=== PATIENT | male | born 1960 | race Caucasian/White ===

== ENCOUNTER 2021-03-14 18:56 | Emergency (ER) | payer SELFPAY ==
[2021-03-14 19:07] VITALS: BP 112/69; PULSE 66; RESP 18; TEMP 37.2; O2SAT 95
--- NOTE | 2021-03-14 19:29 | DI.RAD_ITS ---
Exam(s) XR CHEST 1V IN DI DEPT EXAM: XR CHEST 1V IN DI DEPT CLINICAL HISTORY: fever, back pain. TECHNIQUE: 2D digital imaging was performed. COMPARISON: CT CT ABDOMEN PELVIS W from 03/14/[address] ABDOMEN PELVIS W from 03/14/2021 FINDINGS: Heart size is upper normal. The mediastinum is not widened. Lungs are clear. No infiltrates nor obvious pleural effusions. IMPRESSION: No acute pulmonary findings on this single AP portable view of the chest. DATA REPOSITORY: RADIATION DOSE DELIVERED: All CT scans at this facility use at least one of these dose optimization techniques: automated exposure control; mA and/or kV adjustment per patient size (includes targeted e xams where dose is matched to clinical indication); or iterative reconstruction.
--- NOTE | 2021-03-14 19:30 | DI.CT_ITS ---
Exam(s) CT ABDOMEN PELVIS W EXAM: CT ABDOMEN PELVIS W CLINICAL HISTORY: pain left flank/SI region. TECHNIQUE: Imaging Protocol: Axial computed tomography images with coronal and sagittal reformatted images were created and reviewed CONTRAST MATERIAL: Intravenous: Omnipaque 100cc Oral: None COMPARISON: No exams were available for comparison FINDINGS: VISUALIZED LUNG BASES: No nodules nor pleural effusions evident. ABDOMEN: LIVER: There are no focal hepatic lesions evident . GALLBLADDER/BILIARY: No obvious gallbladder pathology. CBD is not dilated. PANCREAS: No evidence of pancreatic mass nor dilatation of the pancreatic duct. SPLEEN: Spleen size is upper normal. Splenic and portal veins are patent. ADRENALS: There are no significant adrenal masses. KIDNEYS:There is a benign 2 x 1.3 cm cyst in the posterior cortex of the left kidney. No solid renal masses. No calculi nor hydronephrosis.. ABDOMINAL AORTA: Abdominal aorta is not enlarged. LYMPH NODES:There is no retroperitineal nor paraaortic adenopathy. ABDOMINAL WALL: There is a fat containing anterior abdominal wall umbilical hernia. This does not co ntain bowel loops. GI: There is no evidence of bowel obstruction, free air, nor abscess. However, there is a lindo colitis pattern evident. There is a tiny amount of free fluid in the depende nt aspect of the pelvis. PELVIS: GI: No evidence of appendicitis.No evidence of sigmoid diverticulitis.There is a hyperdense diverticu lum off the lateral wall of the left colon which measures 7 x 8 millimeters. LYMPH NODES: There is no intrapelvic nor inguinal adenopathy. REPRODUCTIVE: Prostate size upper normal. URINARY BLADDER: No calculi nor obvious masses evident OSSEOUS: There is a healed fracture of the posterior aspect of the left 11th rib. No acute fractures evident. Sacroiliac joints appear unremarkable. There are bilateral pars interarticularis defects at L5 level with 5 millimeters anterolisthesis L5 u jarek S1. Mild disc space narrowing evident at this level. IMPRESSION: 1. Main finding here is a lindo colitis pattern. There is also a tiny amount of ascites-free fluid in the dependent aspect of the pelvis which is most probably related to this finding. 2. No evidence of bowel obstruction, free air, nor abscess. 3. There is a fat containing anterior abdominal wall umbilical hernia. No bowel loops seen within th e hernia. 4. Solitary 8 millimeter diverticulum noted off the lateral wall of the descending left colon. No ev idence of obvious acute diverticulitis at this level. Incidental osseous findings as above. However, there are no significant osseous lesions RADIATION DOSE DELIVERED: Total DLP DATA REPOSITORY: All CT scans at this facility are submitted to the National Radiology Data Registry (NRDR) Dose Index Registry (DIR) with the [employer] (A[employer]). RADIATION OPTIMIZATION: All CT scans at this facility use at least one of these dose optimization te chniques: automated exposure control; mA and/or kV adjustment per patient size (includes targeted exa ms where dose is matched to clinical indication); or iterative reconstruction.
--- NOTE | 2021-03-14 19:31 | DI.CT_ITS ---
Exam(s) CT LUMBAR SPINE RECONS EXAM: CT LUMBAR SPINE RECONS CLINICAL HISTORY: pain 5-s1. TECHNIQUE: Imaging Protocol: Axial computed tomography images with coronal and sagittal reformatted images were created and reviewed COMPARISON: No exams were available for comparison FINDINGS: Bones: There are no fractures nor lytic osseous lesions identified. INDIVIDUAL LEVELS: T12-L1:No disc herniation nor canal stenosis. Facet joints unremarkable. No foraminal stenosis. L1-2: No disc herniation nor canal stenosis. Facet joints unremarkable. No foraminal stenosis. L2-3: No disc herniation nor canal stenosis. Facet joints unremarkable. No Foraminal stenosis L3-4: Broad symmetrical annular bulging. Mild spinal canal stenosis . mild facet arthropathy. L4-5: No disc herniation nor canal stenosis. L5-S1: Bilateral pars defects with 5 millimeters anterolisthesis L5 upon S1. Also disc space narrow ing. Bilateral foraminal stenosis. Central canal dimensions within normal limits. The visualized sacroiliac joints and sacrum appear unremarkable. PARASPINAL SOFT TISSUES: Visualized paraspinal tissues appear unremarkable. IMPRESSION: 1. There are bilateral pars defects at L5 with anterolisthesis L5 upon S1 and some disc space narrowi ng. There is significant narrowing of both exiting neural foramen at this level with impingement upo n the exiting nerve roots bilaterally at this level 2. Other findings as above. Clinically indicated follow-up MRI can be performed RADIATION DOSE DELIVERED: Total DLP DATA REPOSITORY: All CT scans at this facility are submitted to the National Radiology Data Registry (NRDR) Dose Index Registry (DIR) with the [employer] (ACR). RADIATION OPTIMIZATION: All CT scans at this facility use at least one of these dose optimization te chniques: automated exposure control; mA and/or kV adjustment per patient size (includes targeted exa ms where dose is matched to clinical indication); or iterative reconstruction.
[2021-03-14] MEDS: Normal Saline 1,000 ML 1000 ML IV (19:42)
[2021-03-14 19:45] LABS: Lactate 0.8 mmol/L (0.6-1.4)
[2021-03-14 19:50] LABS: Abs Immature Grans 0.01 10^3/uL (0.0-0.06); Absolute Basophil Count 0.02 10^3/uL (0.0-0.2); Absolute Eosinophil Count 0.02 10^3/uL (0.0-0.7); Absolute Lymphocyte Count 0.42 10^3/uL (1.2-3.4); Absolute Monocyte Count 0.22 10^3/uL (0.1-0.8); Basophils % 0.6; Eosinophils % 0.6; HCT 41.7 % (40.0-50.0); HGB 14.6 g/dL (13.5-17.5); Immature Grans % 0.3; Lymphocytes % 11.6; MCH 33.6 pg (27.0-33.0); MCV 96.1 fL (80-95); MPV 11.3 fL (8.0-11.0); Monocytes % 6.1; Neutrophils % 80.8; Nucleated RBC 0 %; Platelet Count 121 10^3/uL (130-400); RBC 4.34 10^6/uL (4.36-5.78); RDW 11.8 % (11.8-14.1); RDW-SD 41.5 fL; WBC 3.62 10^3/uL (4.4-10.8)
[2021-03-14 19:51] LABS: Absolute Neutrophil Count 2.92 10^3/uL (1.2-6.7)
[2021-03-14 19:53] LABS: ESR 8 mm/hr (0-20)
[2021-03-14 20:00] LABS: ALT 29 U/L (16-63); AST 13 U/L (15-37); Albumin 3.5 g/dL (3.4-5.0); Alkaline Phosphatase 55 U/L (46-116); BUN 16 mg/dL (7-18); Bilirubin, Total 0.5 mg/dL (0.2-1.0); C-Reactive Protein 11.77 mg/dL (0.0-0.3); CREATININE 1.1 mg/dL (0.70-1.30); Calcium 8.5 mg/dL (8.5-10.1); Chloride 106 mmol/L (98-107); Glucose 100 mg/dL (74-106); Magnesium 2.2 mg/dL (1.8-2.4); Potassium 3.3 mmol/L (3.5-5.1); Sodium 142 mmol/L (136-145); Total Protein 6.8 g/dL (6.4-8.2)
[2021-03-14] MEDS: Omnipaque 350 MG/ML 100 ML BTL IJ (20:11)
[2021-03-14] MEDS: Normal Saline Flush 10 ML SYR IVP (20:12)
[2021-03-14] MEDS: Normal Saline - Diluent 50 ML VIAL IV (20:12)
--- NOTE | 2021-03-14 20:34 | DI.VRAD_ITS ---
PROCEDURE INFORMATION: Exam: CT Lumbar Spine Without Contrast Exam date and time: 03/14/2021 7:43 PM Age: 60 years old Clinical indication: Other: Pain l5 s1 TECHNIQUE: Imaging protocol: Computed tomography images of the lumbar spine without contrast. Radiation optimization: All CT scans at this facility use at least one of these dose optimization techniques: automated exposure control; mA and/or kV adjustment per patient size (includes targeted exams where dose is matched to clinical indication); or iterative reconstruction. COMPARISON: No relevant prior studies available. 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 There is bilateral spondylolysis at L5-S1 with 1-2 mm of spondylolisthesis. There is mild broad-based disc bulge with bilateral foraminal narrowing. Discs/Spinal canal/Neural foramina: At L4-L5 there is mild broad-based disc bulge with bilateral foraminal narrowing. No central stenosis. Similar changes seen at L3-L4 without central stenosis. There is minimal hypertrophic spurring with broad-based disc bulge L2-L3. There is mild effacement of the ventral aspect of the thecal sac. Kidneys and ureters: Left renal cyst. Soft tissues: Unremarkable. IMPRESSION: Lower lumbar spondylosis with foraminal compromise most severe with associated spondylolysis L5-S1. Dictated and Authenticated by: Sherie Mccall MD. Ordering:MALINA Castelan MD
--- NOTE | 2021-03-14 20:38 | DI.VRAD_ITS ---
PROCEDURE INFORMATION: Exam: CT Abdomen And Pelvis With Contrast Exam date and time: 03/14/2021 7:32 PM Age: 60 years old Clinical indication: Other: L flank, si region; Patient HX: Pain L flank TECHNIQUE: Imaging protocol: Computed tomography of the abdomen and pelvis with contrast. Radiation optimization: All CT scans at this facility use at least one of these dose optimization techniques: automated exposure control; mA and/or kV adjustment per patient size (includes targeted exams where dose is matched to clinical indication); or iterative reconstruction. Contrast material: OMNIPAQUE 350; Contrast volume: 100 ml; Contrast route: INTRAVENOUS (IV); COMPARISON: No relevant prior studies available. FINDINGS: Liver: Normal. No mass. Gallbladder and bile ducts: Normal. No calcified stones. No ductal dilation. Pancreas: Normal. No ductal dilation. Spleen: Normal. No splenomegaly. Adrenal glands: Normal. No mass. Kidneys and ureters: Left renal cyst. No hydronephrosis. Stomach and bowel: There is wall edema involving the right colon extending to the splenic flexure and to a lesser extent involving the descending colon, sigmoid and rectum. The degree of involvement is somewhat heterogeneous. Appendix: No evidence of appendicitis. Intraperitoneal space: There is a small amount of free fluid in the deep pelvis. Vasculature: Mild atherosclerotic change seen in the vasculature. Lymph nodes: Unremarkable. No enlarged lymph nodes. Urinary bladder: Unremarkable as visualized. Reproductive: Unremarkable as visualized. Bones/joints: There is bilateral spondylolysis with very minimal spondylolisthesis at L5-S1. Soft tissues: Unremarkable. IMPRESSION: Pancolitis with patchy distribution noted. Dictated and Authenticated by: Sherie Mccall MD. Ordering:MALINA Castelan MD
[2021-03-14 20:49] LABS: Bilirubin Small (Negative); Blood Negative (Negative); Clarity Clear (Clear); Glucose Negative (Negative); Ketones Negative (Negative); Leukocyte Esterase Negative (Negative); Nitrite Negative (Negative); Urobilinogen 0.2 EU/dL (Up TO 0.2)
--- NOTE | 2021-03-14 20:49 | DI.VRAD_ITS ---
PROCEDURE INFORMATION: Exam: XR Chest Exam date and time: 03/14/2021 7:44 PM Age: 60 years old Clinical indication: Patient HX: Fever and back pain TECHNIQUE: Imaging protocol: XR of the chest. Views: 1 view. COMPARISON: CT ABDOMEN PELVIS W 03/14/2021 8:08 PM FINDINGS: Lungs: Unremarkable. No consolidation. Pleural spaces: Unremarkable. No pleural effusion. No pneumothorax. Heart/Mediastinum: Unremarkable. No cardiomegaly. Bones/joints: Unremarkable. Other findings: The patient is lordotically positioned. IMPRESSION: No evidence for acute abnormality in the chest. Dictated and Authenticated by: Sherie Mccall MD. Ordering:MALINA Castelan MD
[2021-03-14 21:00] LABS: Bacteria Negative HPF (Negative); Epithelial Cells Negative HPF (Negative); RBC 0-2 HPF (0-2); WBC Negative HPF (0-5)
[2021-03-14 21:01] LABS: C & S Indicated? No; Casts 0-2 Hyaline LPF (Negative); Crystals Negative HPF (Negative); Mucus Heavy (Negative)
--- NOTE | 2021-03-14 21:02 | ED.GENADUL_ITS ---
Discharge Plan Disposition Patient Disposition: HOME Condition: Stable Discharge Details Clinical Impression: Colitis Primary Care Provider: Unknown,Unknown ED Provider: Annelise Torres Home Meds and New Rx's Prescriptions: New ciprofloxacin HCl 500 mg tablet 500 mg PO BID Qty: 20 RF: 0 metronidazole [Flagyl] 500 mg tablet 500 mg PO BID Qty: 20 RF: 0 Saccharomyces boulardii [Florastor] 250 mg capsule 250 mg PO BID Qty: 14 RF: 0 potassium chloride 20 mEq tablet extended release 20 meq PO DAILY Qty: 7 RF: 0 Discharge Instructions Additional Instructions: Take Tylenol and ibuprofen as needed for fever control Care management will call you regarding setting up primary care follow-up Should you have fever lasting longer than 5 days he should be reevaluated again Take antibiotic as prescribed Stay hydrated Recommend clear liquid diet for the next several days I have listed a surgeon for you to follow-up for colonoscopy Your Covid swab will likely be back in approximately an hour, and I will notify you if the result is positive Your stool culture is pending, you will be notified with positive results You will take antibiotics in the interim If the Florastor is an expensive medication, my recommendation would be to take acidophilus pills in place Discharge Data Discharge Date/Time-TO BE ENTERED AT DEPARTURE: 03/14/21 22:20 Medical Decision Making Patient appears well, his fever history certainly is concerning, he does have mild leukopenia, and an elevated CRP We talked about admission versus discharge home with patient for discharge home, stool cultures pending source Will initiate antibiotic given fever history and persistent diarrhea, pending stool culture at this time Covid negative Patient does not have outpatient follow-up with primary care physician, I did recommend care management follow-up and he was placed on list for acquisition of AP Symptoms are stable on reevaluation he has not been febrile throughout encounter, he is not tachycardic, he is not hypoxic, chest x-ray is within normal limits, his potassium is supplemented at home Potassium was 3.3 CT abdomen and pelvis findings reviewed as interpreted below:. Main finding here is a lindo colitis pattern. There is also a tiny amount of ascites-free fluid in the dependent aspect of the pelvis which is most probably related to this finding. 2. No evidence of bowel obstruction, free air, nor abscess. 3. There is a fat containing anterior abdominal wall umbilical hernia. No bowel loops seen within the hernia. 4. Solitary 8 millimeter diverticulum noted off the lateral wall of the descending left colon. No evidence of obvious acute diverticulitis at this level. Incidental osseous findings as above. However, there are no significant osseous lesions Did consider urinary tract infection, urinalysis within normal limits, chest x- ray does not show evidence of pneumonia radiology interpretation my review Patient appears well, he is alert, oriented, of decisional capacity and discharged home in care of , both and patient felt comfortable discharge home with tramadol given very low threshold to return for new or worsening complaints 24-48 hour reevaluation Medical Records Medical records reviewed: Yes I reviewed the patient's medical records. Lab Data Lab results reviewed: Yes I reviewed the patient's lab results. HPI General Mode of arrival: ambulatory . Date/Time Provider Initiated Documentation: 03/14/21 19:14 . Limitations to Documentation: no limitations . Information obtained by: patient . HPI Narrative: This 60-year-old gentleman who is otherwise healthy presents with fever that started on Monday. T-max reportedly 106 at this time. He has had temp of 102 since that time. Been taking Tylenol with good relief in symptoms. Denies any chest pain or shortness of breath. His only complaint is some pain to his left low back region. He denies any nausea or vomiting. He denies history of similar symptoms in the past. He denies known sick contacts or tick bite. He denies any urinary complaints. Denies history of IV drug abuse. Denies history of epidural abscess or discitis. Denies any stiff neck or current headache. Has had intermittent headaches, largely associated with fever for patient. Denies any strength or sensation changes or changes in bowel or bladder. States is not having diarrhea. He denies recent antibiotic use. Not have been vaccinated. D enies any sick contacts. Denies any abdominal pain. Related Data Home Medications Medication Instructions Recorded Confirmed Saccharomyces boulardii [Florastor] 250 mg PO BID #14 cap 03/14/21 ciprofloxacin HCl 500 mg PO BID #20 tab 03/14/21 metronidazole [Flagyl] 500 mg PO BID #20 tab 03/14/21 potassium chloride 20 meq PO DAILY #7 tab 03/14/21 Previous Rx's Medication Instructions Recorded Saccharomyces boulardii [Florastor] 250 mg PO BID #14 cap 03/14/21 ciprofloxacin HCl 500 mg PO BID #20 tab 03/14/21 metronidazole [Flagyl] 500 mg PO BID #20 tab 03/14/21 potassium chloride 20 meq PO DAILY #7 tab 03/14/21 Allergies Allergy/AdvReac Type Severity Reaction Status Date / Time No Known Allergies Allergy Unverified 03/14/21 19:11 General Stated Complaint: Fever GIOVANNA: 3 Review of Systems All systems reviewed & are unremarkable except as noted in HPI and below PFSH Social History Smoking/Tobacco Use Status: Current every day Tobacco Type: smokeless tobacco Smoking risk assessment performed?: Yes Alcohol Intake: current Alcohol Intake frequency: a few times a week Alcohol type: beer and hard liquor Drug use: Rarely Substance use type: does not use Do you feel safe at home: Yes Do you feel safe in your relationship?: Yes Exam Const General: cooperative, comfortable and no acute distress HENMT Other: Moist membranes Eyes Pupils: PERRL Neck Other: No meningismus Resp Effort & Inspection: normal respiratory effort Auscultation: clear to auscultation bilaterally Cardio Rate: regular rate Rhythm: regular rhythm GI Other: No abdominal tenderness, left CVA tenderness, no rebound or guarding, no ecchymosis, no rashes Skin General skin exam: no rashes or lesions noted Neuro General: patient alert and patient oriented x3 Extrem Other: No swelling or tenderness Psych Appearance: well kempt Course Vital Signs Vital signs: Vital Signs Temperature 37.2 C 03/14/21 19:07 Pulse 66 03/14/21 19:07 Respiratory Rate 18 03/14/21 19:07 Blood Pressure 112/69 03/14/21 19:07 Pulse Oximetry 95 03/14/21 19:07 Temperature 37.2 C 03/14/21 19:07 Temperature Source Oral 03/14/21 19:07 Pulse 66 03/14/21 19:07 Respiratory Rate 18 03/14/21 19:07 Respiratory Effort Non-Labored 03/14/21 19:11 Blood Pressure 112/69 03/14/21 19:07 Pulse Oximetry 95 03/14/21 19:07 Pain Level 5 03/14/21 19:07 Lab/Test Results Lab/Test Results: Laboratory Tests Range/Units 03/14/21 03/14/21 03/14/21 19:30 19:30 19:30 WBC (4.4-10.8) 10^3/uL RBC (4.36-5.78) 10^6/uL Hgb (13.5-17.5) g/dL Hct (40.0-50.0) % MCV (80-95) fL MCH (27.0-33.0) pg MCHC (32.0-36.0) % RDW (11.8-14.1) % Plt Count (130-400) 10^3/uL MPV (8.0-11.0) fL Immature Gran % Neutrophils % Lymphocytes % Monocytes % Eosinophils % Basophils % Nucleated RBC % % Absolute Neutrophils (1.2-6.7) 10^3/uL Absolute Lymphocytes (1.2-3.4) 10^3/uL Absolute Monocytes (0.1-0.8) 10^3/uL Absolute Eosinophils (0.0-0.7) 10^3/uL Absolute Basophils (0.0-0.2) 10^3/uL ESR (0-20) mm/hr 8 VBG Lactate (0.6-1.4) mmol/L 0.8 Sodium (136-145) mmol/L 142 Potassium (3.5-5.1) mmol/L 3.3 L Chloride (98-107) mmol/L 106 Carbon Dioxide (21.0-32.0) mmol/L 25.0 Anion Gap (3-11) mmol/L 11.0 BUN (7-18) mg/dL 16 Creatinine (0.70-1.30) mg/dL 1.1 Estimated GFR/1.73 m2 (mL/min/1.73m2) >= 60.00 Glucose (74-106) mg/dL 100 Calcium (8.5-10.1) mg/dL 8.5 Magnesium (1.8-2.4) mg/dL 2.2 Total Bilirubin (0.2-1.0) mg/dL 0.5 AST (15-37) U/L 13 L ALT (16-63) U/L 29 Alkaline Phosphatase (46-116) U/L 55 C-Reactive Protein (0.0-0.3) mg/dL 11.77 H Total Protein (6.4-8.2) g/dL 6.8 Albumin (3.4-5.0) g/dL 3.5 Urine Color (Yellow) Urine Clarity (Clear) Urine pH (5-8) Ur Specific Union (1.005-1.025) Urine Protein (Negative) mg/dL Urine Ketones (Negative) mg/dL Urine Blood (Negative) Urine Nitrite (Negative) Urine Bilirubin (Negative) Urine Urobilinogen (Up TO 0.2) EU/dL Ur Leukocyte Esterase (Negative) Urine RBC (0-2) HPF Urine WBC (0-5) HPF Ur Epithelial Cells (Negative) HPF Urine Crystals (Negative) HPF Urine Bacteria (Negative) HPF Urine Casts (Negative) LPF Urine Mucus (Negative) Ur Culture Indicated? Urine Glucose (Negative) mg/dL Range/Units 03/14/21 03/14/21 19:30 20:35 WBC (4.4-10.8) 10^3/uL 3.62 L RBC (4.36-5.78) 10^6/uL 4.34 L Hgb (13.5-17.5) g/dL 14.6 Hct (40.0-50.0) % 41.7 MCV (80-95) fL 96.1 H MCH (27.0-33.0) pg 33.6 H MCHC (32.0-36.0) % 35.0 RDW (11.8-14.1) % 11.8 Plt Count (130-400) 10^3/uL 121 L MPV (8.0-11.0) fL 11.3 H Immature Gran % 0.3 Neutrophils % 80.8 Lymphocytes % 11.6 Monocytes % 6.1 Eosinophils % 0.6 Basophils % 0.6 Nucleated RBC % % 0 Absolute Neutrophils (1.2-6.7) 10^3/uL 2.92 Absolute Lymphocytes (1.2-3.4) 10^3/uL 0.42 L Absolute Monocytes (0.1-0.8) 10^3/uL 0.22 Absolute Eosinophils (0.0-0.7) 10^3/uL 0.02 Absolute Basophils (0.0-0.2) 10^3/uL 0.02 ESR (0-20) mm/hr VBG Lactate (0.6-1.4) mmol/L Sodium (136-145) mmol/L Potassium (3.5-5.1) mmol/L Chloride (98-107) mmol/L Carbon Dioxide (21.0-32.0) mmol/L Anion Gap (3-11) mmol/L BUN (7-18) mg/dL Creatinine (0.70-1.30) mg/dL Estimated GFR/1.73 m2 (mL/min/1.73m2) Glucose (74-106) mg/dL Calcium (8.5-10.1) mg/dL Magnesium (1.8-2.4) mg/dL Total Bilirubin (0.2-1.0) mg/dL AST (15-37) U/L ALT (16-63) U/L Alkaline Phosphatase (46-116) U/L C-Reactive Protein (0.0-0.3) mg/dL Total Protein (6.4-8.2) g/dL Albumin (3.4-5.0) g/dL Urine Color (Yellow) Marlyn Urine Clarity (Clear) Clear Urine pH (5-8) 6.0 Ur Specific Union (1.005-1.025) 1.020 Urine Protein (Negative) mg/dL 100 H Urine Ketones (Negative) mg/dL Negative Urine Blood (Negative) Negative Urine Nitrite (Negative) Negative Urine Bilirubin (Negative) Small H Urine Urobilinogen (Up TO 0.2) EU/dL 0.2 Ur Leukocyte Esterase (Negative) Negative Urine RBC (0-2) HPF 0-2 Urine WBC (0-5) HPF Negative Ur Epithelial Cells (Negative) HPF Negative Urine Crystals (Negative) HPF Negative Urine Bacteria (Negative) HPF Negative Urine Casts (Negative) LPF 0-2 Hyaline Urine Mucus (Negative) Heavy Ur Culture Indicated? No Urine Glucose (Negative) mg/dL Negative
[2021-03-14 21:18] LABS: Source Nasal/Nares
[2021-03-14] MEDS: Ciprofloxacin 500 MG TAB PO (22:08)
[2021-03-14] MEDS: metroNIDAZOLE 500 MG TAB PO (22:09)
[2021-03-14 22:11] LABS: COVID-19 PCR Negative (Negative)
[2021-03-14 22:13] VITALS: BP 103/53; PULSE 59; RESP 18; TEMP 36.3; O2SAT 987
[2021-03-14 22:50] LABS: C Diff PCR Negative (Negative)
--- NOTE | 2021-03-15 06:19 | NUR.NOTE ---
Nursing Note: Patient placed on care management referral list to assist with establishing PCP.
--- NOTE | 2021-03-15 09:55 | PDOC.ERCMPRO ---
- If Service Date Differs Date of service: 03/15/21 Time of Service: 09:55 Care Management Progress Note Lb is seen in the ED for a fever, back pain, and colitis. At the request of ED provider, HARDEEP coordinates a referral to YAZMIN Lund, of [facility], on-call provider, to assist Lb in obtaining a follow up appointment and in establishing care with a PCP. Lb is also referred to the [employer] at [facility], as he is uninsured.
[2021-03-15 19:42] LABS: Campylobacter PCR Positive (Negative); Shiga Toxin PCR Negative (Negative); Shigella/Enteroinvasive Ecoli Negative (Negative)
[2021-03-16 08:45] LABS: Salmonella PCR Negative (Negative)
--- NOTE | 2021-03-16 09:20 | W.ED.FU ---
I received stool culture from visit on 03/14/2021. I reviewed medical record which is still in draft. Patient was discharged on ciprofloxacin 500 mg twice daily and Flagyl 500 mg twice daily. I called and spoke with the patient. He notes no return of fever and is feeling a little better. He does note he had some delay in getting the antibiotics and has only taken a couple doses. I reviewed results with the patient and advised that he increase dosing of ciprofloxacin to 500 mg 3 times daily for the next 3 days. He is currently working to establish primary care. I recommended that if he continues to have symptoms after 3 days he should talk with his primary care doctor or return to the emergency department if he does not yet have a PCP. If symptoms persist would consider resistance to fluoroquinolones and consider initiating treatment with azithromycin.
[2021-03-16 10:18] LABS: Lyme Ab w Rflx to Lyme Confirm Negative (Negative)
[2021-03-17 14:58] LABS: Anaplasma phagocytophilum Negative (Negative); B. miyamotoi PCR Negative (Negative); Babesia divergens/MO-1 Negative (Negative); Babesia duncani Negative (Negative); Babesia microti Negative (Negative); Ehrlichia chaffeensis Negative (Negative); Ehrlichia ewingii/canis Negative (Negative); Ehrlichia muris eauclairensis Negative (Negative)
== END 2021-03-14 22:20 | disposition home or self-care (01) ==
PROVIDERS: Emergency Provider Physician Assistant
DX: A04.5 Campylobacter enteritis (principal); Z20.822 Contact with and (suspected) exposure to COVID-19; Z03.818 Encounter for observation for suspected exposure to other biological agents ruled out
CPT/HCPCS: 36415; 80053; 85652; 87040; 87493; 87505; 87635; 87798; 96360; 96361; 99285; 71045; 74177; 81003; 81015; 83605; 83735; 85025; 86140; 86618; 99284; J3490

== ENCOUNTER 2021-11-26 03:17 | Outpatient (CLI) | payer BC, SELFPAY ==
[2021-11-26 11:42] LABS: Source Nasal/Nares
[2021-11-26 14:14] LABS: COVID-19 PCR Negative (Negative)
== END 2021-11-26 03:18 | disposition home or self-care (01) ==
LOC: LBO 03:18
PROVIDERS: Visit Provider Surgery
DX: Z20.822 Contact with and (suspected) exposure to COVID-19 (principal)
CPT/HCPCS: 87635

== ENCOUNTER 2021-11-29 09:01 | Day surgery (SDC) | payer BC, SELFPAY ==
--- NOTE | 2021-11-29 07:06 | W.COLOREPORT ---
Colonoscopy Report Date of procedure: 11/29/21 Pre-op diagnosis general: Colon Cancer Screening/ Hx of colon polyps Post-op diagnosis procedure note: other (polyp and mild diverticulosis) Procedure: Colonoscopy with polypectomy Surgeon: Irais Fitzgerald Anesthesia Type: General:No Airway Estimated blood loss (mL): 2 Pathology: other (ascending colon polyp) Complications: None Disposition: same day Indications: The patient is here for Colonoscopy pre-op. His last screening is reported to have been 9+ years ago in [place], patient is unable to recall the facility of where this was performed. He states several polyps were removed at that time.? He has no family history of colon cancer. He has not had any bowel habit changes. -Discussed colonoscopy bowel prep as well as the procedure. Discussed possible complications of the procedure to include bleeding, pain, perforation, missed small lesion/polyp, sore throat, aspiration and adverse reaction to the medications. Questions were answered to patient?s satisfaction. No guarantees were implied or given.? Prep: Miralax/Dulcolax Procedure Start Time: 11:00 Procedure End Time: 11:18 Retraction Time: 10 minutes Findings: One sessile polyp in the ascending colon and mild sigmoid diverticulosis Procedure Description: After informed consent was obtained the patient was taken to the procedure room and placed in a left decubitous position. Monitors were applied and a time out was done. The patients name, date of , procedure, allergies to medications and metal in their body was reviewed. The patient was then sedated. Once sedated and comfortable a rectal exam was done. External exam was normal. Internal exam revealed a normal sphincter tone and no palpable masses. The prostate felt smooth and normal size. The scope was then introduced and retro-flexed. No internal hemorrhoids, polyps or masses were identified on retro-flexion. The scope was then advanced to the cecum without difficulty. The ileocecal vlave and appendiceal orifice were identified. The prep was good. The scope was then slowly retracted over 10 minutes back into the rectum. Polyps were removed with cold forceps in the ascending colon. There was mild sigmoid diverticulosis noted. The scope was removed and the patient was woken up and taken back to Same day surgery in stable condition. The patient tolerated the procedure well and there were no immediate complications. Follow up: The patient should follow up in 3-5 years unless they develop changes in bowel habits or other new gastrointestinal complaints.
--- NOTE | 2021-11-29 07:08 | W.PM.DSUDISC ---
Discharge Plan Disposition Patient Disposition: HOME Condition: Good Discharge Details Reason For Visit: Colonoscopy Attending Provider: Irais Fitzgerald Primary Care Provider: None,None Home Meds and New Rx's Prescriptions: Discontinued bisacodyl [Dulcolax (bisacodyl)] 5 mg tablet,delayed release (DR/EC) 5 mg PO ONCE Qty: 4 0RF Rx Instructions: Take according to provider's instructions for colonoscopy prep. polyethylene glycol 3350 17 gram/dose powder 17 g PO ONCE Qty: 238 0RF Rx Instructions: To be taken as directed by prescriber's office for colonoscopy prep. Discharge Instructions Instructions: Colorectal Polyps (DC), Diverticulosis (DC) Additional Instructions: Findings: one polyp mild diverticulosis Follow up: 3-5 years Please call if you develop: fevers >101.5 Nausea or Vomiting Abdominal pain that is not transient Rectal bleeding that is more then a tbsp A hard abdomen and inability to pass gas DAY SURGERY UNIT POST ENDOSCOPY INSTRUCTIONS Instructions for everyone who is given Anesthesia: For your safety, please do the following for the next 24 Hours: a. Do not drive or operate dangerous equipment b. Do not drink alcohol beverages or use any recreational drugs for the first 24 hours or while taking pain medications. The medications in your body may have a reaction that can be dangerous. c. Do not make any important decisions or sign any important papers 1. Generally there are no restrictions on your activity after a day or so has gone by, but you may feel a bit fatigued for a few days. 2. After you arrive home you may have a light meal and return to a normal diet as you can tolerate it without feeling sick to your stomach. 3. After surgery, you may feel pain or discomfort. This should be only transient, but if it persists please contact your doctor. 4. If there are any questions regarding the findings of your procedure, please feel free to contact your doctor. 6. If you are unable to contact your doctor with a problem, contact the hospital at [phone]. 7. Continue all your regular medications unless directed otherwise. I understand the above instructions and have no questions. Signature of Patient or Responsible Adult Escort Date/Time Name of Responsible Adult Escort Signature of Nurse Date/Time Activity:: Activity as Tolerated Diet:: As Tolerated Discharge Orders Discharge Orders: Discharge Order (Routine); Ordered 11/29/21 Ordered By: Irais Fitzgerald
[2021-11-29 09:13] VITALS: BP 116/66; PULSE 41; RESP 15; TEMP 36.2; O2SAT 98
--- NOTE | 2021-11-29 09:15 | RT.EKG_ITS ---
APPROVED REPORT Exam: Resting ECG Reason for Exam: Pre op EKG prior to procedure, Patient Location: O HR:41 bpm ECG Measurements Heart Rate 41 AXIS OK 135 P 22 QRSd 122 QRS 9 QT 506 T 21 QTc 421 Conclusion Sinus bradycardia...rate< 60 Nonspecific intraventricular conduction delay...QRSd >115mS, not LBBB/RBBB Poor R wave progression
--- NOTE | 2021-11-29 09:46 | W.ANESPRE ---
General Info Date of Service Date Performed: 11/29/21 Height: 5 ft 9 in Weight: 92.3 kg Body Mass Index (BMI): 30.0 Surgical Procedure: Operation Date: 11/29/21 10:35 Proposed Procedure Side Surgeon p Colonoscopy Irais Fitzgerald MD Meds Allergies and Home Medications Allergies Allergy/AdvReac Type Severity Reaction Status Date / Time No Known Allergies Allergy Unverified 11/29/21 09:34 Home Medication Medication Instructions Recorded bisacodyl 5 mg tablet,delayed 5 mg PO ONCE #4 tab 11/18/21 release (Dulcolax (bisacodyl)) polyethylene glycol 3350 17 17 g PO ONCE #238 g 11/18/21 gram/dose oral powder Current Visit Medications: Current Medications Generic Name Dose Route Start Last Admin Trade Name Freq PRN Reason Stop Dose Admin Hyoscyamine Sulfate 0.125 mg 11/29/21 07:08 Hyoscyamine 0.125 Mg Sl/Oral/Chew SL DIRECTED PRN Ringer's Solution 1,000 mls @ 80 mls/hr 11/29/21 06:00 IV 12/26/21 23:59 [facility] IV Miscellaneous Supplies 1 each 11/29/21 06:00 Iv Access IV 12/26/21 23:59 DIRECTED ARVIND Ondansetron HCl 4 mg 11/29/21 07:08 Ondansetron 4 Mg/2 Ml Vial IVP Q4H PRN PRN Nausea / Vomiting Sodium Chloride 0 ml 11/29/21 06:00 Normal Saline Flush 10 Ml Syr IV 12/26/21 23:59 PRN PRN Sodium Chloride 0 ml 11/29/21 06:00 Normal Saline 10 Ml Vial IJ 12/26/21 23:59 DIRECTED PRN Sterile Water 0 ml 11/29/21 06:00 Water,Injection,Sterile 10 Ml Vial IJ 12/26/21 23:59 DIRECTED PRN PFSH Active Problems Active Problems: Problem Status Onset Code Colitis K52.9 Screening for colon cancer Z12.11 Medical History Medical History Sinusitis Surgical History Surgical History Hx of hernia repair Tobacco Smoking/Tobacco Use Status: Current every day Tobacco Type: smokeless tobacco Alcohol Alcohol Intake: current Alcohol intake frequency: a few times a week Alcohol type: beer and hard liquor Substance Use Substance use: Rarely Substance use type: does not use Vital Signs and Lab Results Vital Signs Most Recent Vital Signs in EMR: Most Recent Vital Signs Temp Pulse Resp BP Pulse Ox 36.2 C L 41 L 15 116/66 98 11/29/21 09:13 11/29/21 09:13 11/29/21 09:13 11/29/21 09:13 11/29/21 09:13 Lab Results Blood Type / Crossmatch: No Data to Display Complete Blood Count: No Data to Display Complete Metabolic Panel: No Data to Display Liver Function Panel: No Data to Display Coagulation Panel: No Data to Display Cardiac Panel: No Data to Display Arterial Blood Gas: No Data to Display Venous Blood Gas: No Data to Display Pancreas Panel: No Data to Display Thyroid Panel: No Data to Display Infectious Disease: Coronavirus (COVID-19)(PCR) Negative (Negative) 11/26/21 08:53 11/26/21 Coronavirus 2019 Source Nasal/Nares 11/26/21 08:53 11/26/21 Blood Cultures: No Data to Display Toxicology Panel: No Data to Display Imaging and Studies Imaging and Studies Study information below may be from another EMR and interpreted by another provider. Please see original notes in EMR for more complete details. EKG Summary: 11/29/21: sinus atilio, intraventricular conduction delay. Anesthesia Assessment and Plan Anesthesia History Personal History: No History of Anesthesia Complications Family History: No Family History of Anesthesia Complications Exercise Tolerance Exercise Tolerance: Metabolic Equivalents>4 Cardiac & Pulmonary Exam Cardiac Exam: Normal S1/S2 Heart Sounds Pulmonary Exam: Clear Bilateral Breath Sounds Implantable Cardiac Device Does patient have a Pacemaker or an ICD?: No Airway Exam Known Difficult Airway: No Mallampati Class: 3 Mouth Opening: Normal (> 3cm) Thyromental Distance: Less than 3 cm Neck Range of Motion: Full ROM Neck Circumference: Normal Teeth Condition: Normal Dentition ASA Classification ASA Score: ASA 2 Emergency Case?: No NPO Status NPO Status: NPO Clears >2 hours, Solids >8 hours Anesthesia Plan Resuscitation Status: Full Code Anesthesia Technique: General Anesthesia Airway Planned: Natural Airway Monitors Used: Standard Monitors Preoperative Comments:: 61 yo male with history of polyps here for colonoscopy. Sig PMHx: chewing tobacco (none today), occ EtOH, denies any major health history.
[2021-11-29] MEDS: Lactated Ringers 1,000 ML 80 ML IV (10:02)
--- NOTE | 2021-11-29 11:06 | BOWEL_PTH ---
PATIENT: Lb Lamb LOC: [facility] U#:[id number] AGE/SX: 61/M ROOM: RE11/29/[address]: Irais Fitzgerald MD : [id number] BED: DIS: 11/29/2021 SPEC #: [id number] RECD: 11/29/21 12:11 STATUS: BRIJESH REQ #: [id number] MARC: 11/29/21 11:[address]: Irais Fitzgerald DEPT: Surgical Specimen RECD BY: Annelise Anand ENTERED: 11/29/21 12:12 SP TYPE: Bowel OTHR DR: None Tissues: 1 - BIOPSY BOWEL Procedures: GROSS AND MICRO LEVEL 4 Comments: [id number]
[2021-11-29 11:20] VITALS: BP 81/62; PULSE 49; RESP 16; TEMP 36; O2SAT 95
--- NOTE | 2021-11-29 11:45 | W.ANESPOSTOP ---
Postoperative Evaluation Date, Time and Location Date Performed: 11/29/21 Time Performed: 11:45 Patient Location: Day Surgery Unit Vital Signs Most Recent Imported Vital Signs: Most Recent Vital Signs Temp Pulse Resp BP Pulse Ox 36 C L 49 L 16 81/62 L 95 11/29/21 11:20 11/29/21 11:20 11/29/21 11:20 11/29/21 11:20 11/29/21 11:20 Pain Score Most Recent Pain Score: Most Recent Pain Score Pain Level 0 11/29/21 11:20 Assessment Mental Status: Awake (Alert & Oriented to Patient Baseline) Airway and Respiratory Function: Patent airway with normal (patient baseline) respiratory exam Cardiovascular Function: Hemodynamically Stable Hydration Status: Adequately Hydrated Nausea & Vomiting: No Nausea or Vomiting Pain: Pt. Denies Any Pain Peripheral Nerve Block: Patient did not receive a nerve block
[2021-11-29 11:55] VITALS: BP 97/62; PULSE 41; RESP 16; TEMP 36.2; O2SAT 98
== END 2021-11-29 12:27 | disposition home or self-care (01) ==
LOC: SUR 09:02
PROVIDERS: Visit Provider Surgery
PROC: 0DJD8ZZ Inspection of Lower Intestinal Tract, Via Natural or Artificial Opening Endoscopic (ICD-10-PCS; CPT 45378; principal; 2021-11-29 10:30)
DX: Z12.11 Encounter for screening for malignant neoplasm of colon (principal); K63.5 Polyp of colon; K57.30 Diverticulosis of large intestine without perforation or abscess without bleeding; Z86.010 Personal history of colon polyps
CPT/HCPCS: 45380; 88305; 93005; 93010

== ENCOUNTER 2023-08-22 11:24 | Outpatient (CLI) | payer BC, SELFPAY ==
--- NOTE | 2023-08-22 09:30 | DI.RAD_ITS ---
Exam(s) XR SHOULDER RT COMPLETE 2+V EXAM: XR SHOULDER RT COMPLETE 2+V CLINICAL HISTORY: evaluate right shoulder. TECHNIQUE: 2D digital imaging was performed. COMPARISON: No exams were available for comparison FINDINGS: Two views. No evidence of fracture or dislocation and there are no abnormal soft tissue calcifications. The sub acromial space is not diminished. No calcifications evident within the subacromial space. Minimal d egenerative changes in glenohumeral joint. No osseous lesions. Bone density normal. IMPRESSION: No significant osseous findings. DATA REPOSITORY: RADIATION DOSE DELIVERED:
== END 2023-08-22 11:25 | disposition home or self-care (01) ==
LOC: DIORS 11:24
PROVIDERS: Visit Provider Student in an Organized Health Care Education/Training Program
DX: M25.511 Pain in right shoulder (principal)
CPT/HCPCS: 73030

== ENCOUNTER → 2023-11-10 00:54 | Outpatient (CLI) | payer BC, SELFPAY ==
--- NOTE | 2023-11-10 07:00 | DI.MRI_ITS ---
Exam(s) MR UPPER JOINT RT WO EXAM: MR UPPER JOINT RT WO CLINICAL HISTORY: R SHOULDER PAIN,rt rotator cuff tear,M75.101. TECHNIQUE: Multiplanar multisequence MRI was performed. COMPARISON: CR XR SHOULDER RT COMPLETE 2+V from 08/22/2023 FINDINGS: BONES: There is no fracture or contusion pattern. JOINTS: There are mild degenerative changes seen at the acromioclavicular joint. The glenohumeral glenn int is normal. TENDONS: Supraspinatus: There is a partial intrasubstance tear of the supraspinatus tendon at its insertion si te. Infraspinatus: There is hyperintense signal seen on the articular surface side of the infraspinatus t endon consistent with a partial tear. Subscapularis: There is tendinosis of the subscapularis tendon. Teres Minor: Unremarkable. Biceps and [place]: There is tendinosis seen of the long head of the biceps tendon. MUSCLES: Unremarkable. GLENOID LABRUM: There is degenerative fraying seen at the superior labrum. SOFT TISSUES: Unremarkable. LIGAMENTS: Unremarkable. OTHER: There is a small amount of fluid in the subdeltoid bursa and in the subcoracoid bursa. IMPRESSION: 1. Intrasubstance supraspinatus tendon tear and articular surface infraspinatus tendon tear. 2. Tendinosis of the subscapularis and long head of the biceps tendon. 3. Degenerative fraying seen in the superior labrum. 4. Degenerative changes seen at the acromioclavicular joint. 5. Small amount of fluid seen in the subdeltoid bursa and the subcoracoid bursa. DATA REPOSITORY:
== END ==
PROVIDERS: Visit Provider Student in an Organized Health Care Education/Training Program
DX: S46.011A Strain of muscle(s) and tendon(s) of the rotator cuff of right shoulder, initial encounter (principal); X58.XXXA Exposure to other specified factors, initial encounter
CPT/HCPCS: 73221

== ENCOUNTER 2024-07-12 05:54 | Day surgery (SDC) | payer BC, SELFPAY ==
[2024-07-12] VITALS (17 sets, daily range): BP systolic 100–114; BP diastolic 53–65; PULSE 45–55; RESP 11–22; TEMP 36–36.6; O2SAT 93–98; BMI 29.2
[2024-07-12] MEDS: Lactated Ringers 500 ML 30 ML IV (07:00)
--- NOTE | 2024-07-12 07:04 | ROE_ITS ---
Date of service: 07/12/24 Time of Service: 07:30 Operative Note Operative Note DATE OF PROCEDURE: 07/12/24 PRE-OP DIAGNOSIS: Right: 1. Rotator cuff tear 2. SLAP tear POST-OP DIAGNOSIS: same PROCEDURE: Right: 1. Extensive debridement, CPT# 48457. This involved using arthroscopic hand instruments, power instruments, and radiofrequency instruments to release the long head of the biceps tendon and debride areas of labral tearing, synovitis, and chondromalacia about the biceps groove within the glenohumeral joint anteriorly, superiorly and posteriorly. Loose numerous small cartilage bodies were also removed from throughout the glenohumeral joint. Mild bursectomy and under surface acromion exposed as part of a limited subacromial decompression. 2. Open biceps tenodesis, CPT# 21028. This involved reattaching the long head of the biceps tendon to the proximal humerus in the sub-pectoral area of the bicipital groove at the correct tension. The assistant laboratory director was medically required in order to help assist in techniques above, which require positioning the arm, holding the arthroscope, and manipulating multiple instruments and sutures at the same time. This cannot be done without the help of an experienced assistant laboratory director. SURGEON: Mesfin Allen CUSTOMER ENGAGEMENT MANAGER: Jayla Cordon ANESTHESIA TYPE: Local By Surgeon, General LMA/ETT and Primary Nerve Block Refer to Anesthesia Record ESTIMATED BLOOD LOSS: 5 PATHOLOGY: none sent COMPLICATIONS: None Patient was transported to: PACU Patient's condition: stable Implants: Arthrex: Unicortical Proximal Biceps Tenodesis Button Indications: The patient was diagnosed with the above conditions and appropriately indicated for surgical intervention. Please see complete medical record for details. Findings: Exam under anesthesia: Full range of motion, no instability. Unable to recreate any significant mechanical problems. Glenohumeral joint: Significant glenohumeral chondromalacia with grade 4 full- thickness cartilage loss posterior central glenoid and humeral head and moderate cartilage thinning and loss remainder joint. Numerous small cartilaginous loose bodies and irregular cartilage edges flaps. Large unstable biceps anchor SLAP tear. Biceps tendon otherwise intact. Rotator cuff subscapularis and articular side supraspinatus infraspinatus completely intact. Mild rotator interval synovitis. Subacromial space: Mild bursitis. Mild irregular fraying anterior to central supraspinatus without any significant bursal structural tearing or significant thinning. No significant undersurface acromial bone spurring. Procedure Description: In the operating room, general anesthesia was induced. Bilateral shoulders were examined. The patient was positioned in the beachchair position. All bony prominences were well-padded. Preoperative antibiotics were administered. The shoulder was prepped and draped in the usual sterile fashion. The correct patient, procedure, and side of the procedure were all verified prior to incision. Starting through the posterior portal a standard complete diagnostic arthroscopy was performed of the glenohumeral joint including inspection of the long head of the biceps, anterior and superior labrum, subscapularis tendon, supraspinatus and infraspinatus tendons, and axillary recess. The glenoid and humeral head cartilage as well as the posterior labrum were inspected from an anterior viewing portal. Significant findings and interventions noted above including the thorough debridement of the glenohumeral arthritis ensuring all loose cartilage bodies were removed, cartilage edge flaps were debrided, anterior and posterior labrum were debrided and contoured, the unstable superior labrum was partially resected and debrided after amputating the biceps tendon. The art hroscope was redirected into the subacromial space from the posterior portal, anterior portal was used also redirected to the subacromial space, no lateral portal was needed to debride a small amount of bursitis, exposed and probed the supraspinatus and remainder of the rotator cuff which did not demonstrate any significant tearing requiring repair as well as expose the undersurface acromion. The shoulder was drained of arthroscopic fluid. All portal sites were copiously irrigated. These incisions were closed using 3-0 Monocryl in a buried fashion. Bupivacaine with epinephrine was infiltrated about a medium-sized longitudinal incision at the inferior margin of the pectoralis major localized over the long head of the biceps tendon. Blunt and sharp dissection were used to expose the tendon in the bicipital groove. The tendon was brought out of the wound and kept off the skin on top of a blue towel. The correct location for sub-pectoral fixation was localized, prepped with a rasp, and then drilled with a 3.2 mm drill pin in a unicortical fashion. Using a fiber loop suture the tendon was prepped from the musculotendinous junction a few centimeters proximal. The excess tendon was amputated. The free suture ends were then passed through the unicortical button implant. The drill pin was removed and the implant was placed into the humeral intramedullary canal. The button was flipped and the sutures were tensioned bringing the tendon down to bone. Tension and fixation were then tested and found to be appropriate. The suture tails were brought on either side of the tendon and then tied compressing tendon to bone. The wound was copiously irrigated with normal saline. Subcutaneous tissue was closed using 3-0 Monocryl in a buried interrupted fashion. Skin was closed using 3-0 Monocryl in a buried subcuticular running fashion. Skin glue was applied over the incision. Mastisol was applied about the incision. The incision was covered with Telfa, gauze, and covered with a Tegaderm dressing. The portals were then covered with Mastisol, Steri-Strips, Xeroform, dry gauze, and ABDs. The dressings were covered and secured with Medipore tape. The operative extremity was placed into a sling for immobilization. The patient awoke from anesthesia without complication and was transferred to the recovery room in a stable condition.
--- NOTE | 2024-07-12 07:06 | W.PM.DSUDISC ---
Date of service: 07/12/24 Time of Service: 10:00 Discharge Plan Disposition Patient Disposition: Home Condition: Stable Discharge Details Attending Provider: Mesfin Allen Primary Care Provider: None,None Home Meds and New Rx's Prescriptions: New naproxen 250 mg tablet 250 - 500 mg PO BID PRN (Reason: moderate pain and swelling) Qty: 40 0RF oxycodone 5 mg tablet 5 - 10 mg PO .q4-6h MDD 30 mg PRN (Reason: severe pain) Qty: 18 0RF Continued fluticasone propionate [Allergy Relief (fluticasone)] 50 mcg/actuation spray,suspension 1 spray intranasal DAILY PRN Rx Instructions: administer into each nostril Discharge Instructions Additional Instructions: Surgery: Right shoulder arthroscopy with extensive debridement, subacromial decompression, and open biceps tenodesis; Significant glenohumeral chondromalacia. Activity: You should gradually increase range of motion motion and use of your shoulder. You may use your shoulder for all regular activities while protecting the biceps repair. Avoid any weighted elbow flexion or resisted supination for 6-8 weeks. No heavy lifting, reaching overhead, or lifting away from body for approximately 2-3 months. You may use the sling whenever you are out of the house for a few weeks. At home it is best to remove the sling and rest the arm on a pillow at your side or support the operative side with your other hand. A physical therapy prescription will be sent electronically to start in about 3 weeks. Prescriptions: Naproxen 250 mg take 1-2 every 12 hours with a meal as needed for moderate pain Oxycodone 5 mg take 1-2 every 4-6 hours as needed for severe pain You may use ziac-[id number]-fgrchdv Tylenol (acetaminophen) as needed for mild pain. These pain medications may be taken all at once or in different combinations as needed. Also, recommend Colace (docusate) as a stool softener as surgery and pain medicine cause constipation. You may try byje-nug-vmzmlzf diphenhydramine (Benadryl) 25-50 mg nightly as a sleep aid Dressings: Remove shoulder bandage after 3 days. Leave the sticky Steri-Strips in place until they fall off or remove them after you shower. Cover the incisions with Band-Aids or leave them open to air. The biceps bandage (inside upper arm) is glued on separately. You may leave this one on a few days longer if it is difficult to remove. There is also glue underneath this bandage that can be left in place until it peels off. You may shower after 5 days. Follow-up: 10-[address] Allen You may take off the leg compression stockings this evening at home. You may also leave them on a few days longer if you have a history of leg swelling or edema. Let us know right away if you develop any redness, drainage, fevers, chest pain, or trouble breathing. Do not drink alcohol or drive for at least 24 hours after anesthesia. Please call the office during business hours with any questions or concerns. Stand Alone Forms: Anesthesia Discharge Inst., Emily.Nerve Block Instructions, Tatiana Condon (DSU) Referrals: Mesfin Allen MD [ [facility] STAFF PHYSICIAN] - 07/24/24 10:00 am Discharge Orders Discharge Orders: Discharge Order (Routine); Ordered 07/12/24 Ordered By: Jayla Cordon DS: Diagnosis Discharge Diagnosis (1) Tendinopathy of right biceps tendon: Status: Acute
--- NOTE | 2024-07-12 07:12 | ANES.PREOP_ITS ---
General Info Date of Service Date Performed: 07/12/24 Height: 5 ft 9 in Weight: 90 kg Body Mass Index (BMI): 29.2 Surgical Procedure: Operation Date: 07/12/24 07:40 Proposed Procedure Side Surgeon p Shoulder Rotator Cuff Arthroscopic Right Mesfin Allen MD Meds Allergies and Home Medications Allergies Allergy/AdvReac Type Severity Reaction Status Date / Time No Known Allergies Allergy Verified 07/12/24 06:20 Home Medication ?Medication ?Instructions ?Recorded fluticasone propionate 50 1 spray intranasal DAILY PRN 02/13/24 mcg/actuation nasal spray,suspension (Allergy Relief (fluticasone)) naproxen 250 mg tablet 250 - 500 mg (1 - 2 x 250 mg) PO 07/12/24 BID PRN moderate pain and swelling #40 tabs oxycodone 5 mg tablet 5 - 10 mg (1 - 2 x 5 mg) PO .q4-6h 07/12/24 PRN severe pain #18 tabs Current Visit Medications: Current Medications Generic Name Dose Route Start Last Admin Trade Name Freq PRN Reason Stop Dose Admin Cefazolin Sodium/Dextrose 2 gm in 50 mls @ 100 mls/hr 07/12/24 06:00 Ancef Duplex IVPB 07/12/24 23:59 PREOP ARVIND Tranexamic Acid/Sodium Chloride 1,000 mg in 100 mls @ 600 mls/hr 07/12/24 06:00 IVPB 07/12/24 23:59 PREOP ARVIND Ringer's Solution 500 mls @ 30 mls/hr 07/12/24 06:00 07/12/24 07:00 IV 08/11/24 05:59 30 mls/hr INFUSION ARVIND Administration IV Miscellaneous Supplies 1 each 07/12/24 06:00 Iv Access IV 08/10/24 23:59 DIRECTED ARVIND Oxycodone HCl 0 mg 07/12/24 07:06 Oxycodone 5 Mg Tab PO 08/11/24 07:05 Q3H PRN PRN Pain Sodium Chloride 0 ml 07/12/24 06:00 Normal Saline Flush 10 Ml Syr IV 08/10/24 23:59 PRN PRN Sodium Chloride 0 ml 07/12/24 06:00 Normal Saline 10 Ml Vial IJ 08/10/24 23:59 DIRECTED PRN Sterile Water 0 ml 07/12/24 06:00 Water,Injection,Sterile 10 Ml Vial IJ 08/10/24 23:59 DIRECTED PRN PFSH Active Problems Active Problems: Problem Status Onset Code Superior labrum [id number] (SLAP) tear of right shoulder Acute S 43.431A Tendinopathy of right biceps tendon Acute M67.921 Rotator cuff tear, right Acute ~05/2023 M75.101 Tubular adenoma of colon Acute D12.6 Colitis Acute K52.9 Screening for colon cancer Acute Z12.11 Medical History Medical History (Updated 07/12/24 @ 06:38 by Colette Pereira) SAM on CPAP Sinusitis Surgical History Surgical History History of colonoscopy (~11/2021) Hx of hernia repair Tobacco Smoking/Tobacco Use Status: Current every day Tobacco Type: smokeless tobacco Alcohol Alcohol Intake: current Alcohol intake frequency: a few times a week Alcohol type: beer and hard liquor Substance Use Substance use: Never Substance use type: does not use Vital Signs and Lab Results Vital Signs Most Recent Vital Signs in EMR: Most Recent Vital Signs Temp Pulse Resp BP Pulse Ox 36 C L 47 L 16 105/63 96 07/12/24 06:15 07/12/24 06:15 07/12/24 06:15 07/12/24 06:15 07/12/24 06:15 Lab Results Blood Type / Crossmatch: No Data to Display Complete Blood Count: No Data to Display Complete Metabolic Panel: No Data to Display Liver Function Panel: No Data to Display Coagulation Panel: No Data to Display Cardiac Panel: No Data to Display Arterial Blood Gas: No Data to Display Venous Blood Gas: No Data to Display Pancreas Panel: No Data to Display Thyroid Panel: No Data to Display Infectious Disease: No Data to Display Blood Cultures: No Data to Display Toxicology Panel: No Data to Display Imaging and Studies Imaging and Studies Study information below may be from another EMR and interpreted by another provider. Please see original notes in EMR for more complete details. EKG Summary: 11/29/21: sinus atilio, intraventricular conduction delay. Anesthesia Assessment and Plan Anesthesia History Personal History: No History of Anesthesia Complications Family History: No Family History of Anesthesia Complications Exercise Tolerance Exercise Tolerance: Metabolic Equivalents>4 Pertinent Negatives Pertinent Negatives: No Symptoms of GERD Cardiac & Pulmonary Exam Cardiac Exam: Normal S1/S2 Heart Sounds Pulmonary Exam: Clear Bilateral Breath Sounds Implantable Cardiac Device Does patient have a Pacemaker or an ICD?: No Airway Exam Known Difficult Airway: No Mallampati Class: 2 Mouth Opening: Normal (> 3cm) Thyromental Distance: Less than 3 cm Neck Range of Motion: Full ROM Neck Circumference: Normal Teeth Condition: Normal Dentition ASA Classification ASA Score: ASA 2 Emergency Case?: No NPO Status NPO Status: NPO Clears >2 hours, Solids >8 hours Anesthesia Plan Resuscitation Status: Full Code Anesthesia Technique: General Anesthesia Airway Planned: Endotracheal Tube Pain Management: Surgeon and patient request nerve block Monitors Used: Standard Monitors and SedLine
[2024-07-12] MEDS: ceFAZolin 2 GM/50 ML BAG IVPB (07:45)
[2024-07-12] MEDS: TRANEXAMIC ACID/SOD. CHL. 1,000 MG/100 ML BAG 600 MG IVPB (07:55)
--- NOTE | 2024-07-12 08:24 | ANES.NERVE_ITS ---
Nerve Block Single Injection Procedure Date and Time Date Performed: 07/12/24 Procedure Start: 07:15 Location Where Procedure Performed Procedure Location: Operating Room Procedure Stop: :24 Reason Performed: Postoperative Analgesia Requesting Provider: Mesfin Allen Timeout Performed Timeout Performed: Yes Monitoring Used ECG, Blood Pressure, SpO2 and See EMR for corresponding vital signs Sterility Sterility: Hand Hygiene, Surgical Cap, Surgical Mask, Sterile Gloves, Eye Pr otection and Chlorhexidine Sedation Given During Procedure Sedation Given (Indicate Dose Given): Versed IV Dose:: 4mg IVP Patient Mental Status Patient Mental Status: Sedate with meaningful communication Nerve Block 1st Nerve Block: Laterality: Right Block Type: Interscalene Ultrasound Image Saved?: Yes Needle / Catheter Used: 80mm SonoPlex II Local Anesthetic Bolus (Indicate Dose Given): None, Injected in 3-5ml increments after negative blood aspiration, Bupivacaine 0.5% Dose:: 0.5%/10cc (50mg) and Exparel Dose:: 1.33%/10cc (133mg) Additives (Indicate Dose Given): Epinephrine to make 1:200,000 (5mcg/ml) Dose:: 100mcg and Decadron Dose:: 10mg PF Ultrasound: Sterile probe cover and gel used Nerve Stimulator: Not Used Paresthesia: None Procedure Tolerated: No Complications and Patient tolerated well Procedure Outcome: Successful Performed By: Gonzalo Watson
[2024-07-12] MEDS: Bupivacaine 0.25% Pres-Free W/EPI 30 ML VIAL ×2 (08:36→09:17)
[2024-07-12] MEDS: EPINEPHrine 10 MG/10 ML ML (08:36)
== END 2024-07-12 11:30 | disposition home or self-care (01) ==
PROVIDERS: Visit Provider Student in an Organized Health Care Education/Training Program
PROC: (CPT 29827; principal; 2024-07-12 07:30)
DX: M67.921 Unspecified disorder of synovium and tendon, right upper arm (principal); S43.431A Superior glenoid labrum lesion of right shoulder, initial encounter; M75.101 Unspecified rotator cuff tear or rupture of right shoulder, not specified as traumatic; X58.XXXA Exposure to other specified factors, initial encounter; G89.18 Other acute postprocedural pain
CPT/HCPCS: 23430; 29823; 64415; C9290; J0131; J0171; J0665; J0690; J1100; J1885; J2250; J2405; J2704